=== PATIENT | male | born 1985 | race Hispanic/Latino ===

== ENCOUNTER 2017-08-21 19:37 | Inpatient (IN) | payer MEDICAID, OTHER ==
[2017-08-21 19:38] VITALS: BMI 24.6
--- NOTE | 2017-08-21 20:17 | C.PDOC ---
History Of Present Illness 31 y/o male presents to ED requesting opiates detox. Patient reports last used at 5:30 am this morning and currently denies suicidal ideation, homicidal ideation or any other physical complaints at this time. Time Seen by Provider: 08/21/17 20:02 Chief Complaint (Nursing): Substance Abuse History Per: Patient History/Exam Limitations: no limitations Onset/Duration Of Symptoms: Days Current Symptoms Are (Timing): Still Present Suicide/Self Injury Attempted (Context): None Modifying Factor(s): Narcotics Past Medical History Reviewed: Historical Data, Nursing Documentation, Vital Signs Vital Signs: Last Vital Signs Temp 97.7 F 08/21/17 19:52 Pulse 64 08/21/17 19:52 Resp 20 08/21/17 19:52 BP 131/83 08/21/17 19:52 Pulse Ox 100 08/21/17 21:25 - Medical History PMH: No Chronic Diseases Surgical History: No Surg Hx Family History: States: No Known Family Hx - Social History Hx Alcohol Use: Yes Hx Substance Use: Yes - Immunization History Hx Tetanus Toxoid Vaccination: No Hx Influenza Vaccination: No Hx Pneumococcal Vaccination: No Review Of Systems Constitutional: Negative for: Fever, Chills Cardiovascular: Negative for: Chest Pain Respiratory: Negative for: Shortness of Breath Gastrointestinal: Negative for: Nausea, Vomiting Skin: Negative for: Rash Psych: Negative for: Depression, Suicidal ideation, Withdrawal Physical Exam - Physical Exam Appears: Non-toxic, No Acute Distress Skin: Warm, Dry, No Rash Head: Atraumatic, Normacephalic Eye(s): bilateral: Normal Inspection Oral Mucosa: Moist Neck: Normal ROM, Supple Cardiovascular: Rhythm Regular Respiratory: Normal Breath Sounds, No Rales, No Rhonchi, No Wheezing Gastrointestinal/Abdominal: Soft, No Tenderness, No Guarding, No Rebound Neurological/Psych: Oriented x3, Normal Speech, Normal Cognition ED Course And Treatment - Laboratory Results Result Diagrams: 08/21/17 20:24 08/21/17 20:24 O2 Sat by Pulse Oximetry: 100 (RA) Pulse Ox Interpretation: Normal Medical Decision Making Medical Decision Makin:20- Patient is medically cleared accepte dto detox Disposition - Disposition Disposition: HOSPITALIZED Disposition Time: 21:00 Condition: STABLE Forms: [facility] (Tajik) - Clinical Impression Clinical Impression: Drug abuse - Scribe Statement The provider has reviewed the documentation as recorded by the Sudhiribrocio Hwang All medical record entries made by the Sudhiribrocio were at my direction and personally dictated by me. I have reviewed the chart and agree that the record accurately reflects my personal performance of the history, physical exam, medical decision making, and the department course for this patient. I have also personally directed, reviewed, and agree with the discharge instructions and disposition. Decision To Admit - Pt Status Changed To: Hospital Disposition Of: Inpatient - Admit Certification Admit to Inpatient:: After my assessment, the patient will require hospitalization for at least two midnights. This is because of the severity of symptoms shown, intensity of services needed, and/or the medical risk in this patient being treated as an outpatient. - InPatient: Physician Admission Certification: I certify that this patient requires 2 or more midnights of care for the following reason:: needs detox - . Bed Request Type: Detox Admitting Physician: Hay Mcdonnell Patient Diagnosis: Drug abuse
[2017-08-21 20:28] LABS: BASO % 0.6 % (0.0-2.0); EOS # 0.1 K/uL (0.0-0.7); EOS % 0.8 % (0.0-4.0); HEMOGLOBIN 13.4 g/dL (12.0-18.0); LYMPH # 2.2 K/uL (1.0-4.3); LYMPH % 27.1 % (20.0-40.0); MEAN CELL VOLUME 87.6 fL (80.0-94.0); MEAN CORPUSCULAR HEMOGLOBIN 30.6 pg (27.0-31.0); MEAN CORPUSCULAR HGB CONC 34.9 g/dL (33.0-37.0); MEAN PLATELET VOLUME 7.1 fL (7.2-11.7); MONO # 0.6 K/uL (0.0-0.8); MONO % 7.6 % (0.0-10.0); NEUT # 5.3 K/uL (1.8-7.0); NEUT % 63.9 % (50.0-75.0); NRBC % 0.1 % (0.0-2.0); RBC 4.39 Mil/uL (4.40-5.90); RED CELL DISTRIBUTION WIDTH 13.7 % (11.5-14.5); WHITE BLOOD COUNT 8.3 K/uL (4.8-10.8)
[2017-08-21 20:30] LABS: URINE BILIRUBIN NEGATIVE (NEGATIVE); URINE BLOOD NEGATIVE (NEGATIVE); URINE CLARITY Clear (Clear); URINE COLOR Yellow (YELLOW); URINE GLUCOSE (UA) NORMAL (Normal); URINE LEUKOCYTE ESTERASE NEG Leu/uL (Negative); URINE PROTEIN NEGATIVE (NEGATIVE); URINE UROBILINOGEN NORMAL mg/dL (0.2-1.0)
[2017-08-21 20:43] LABS: ALB/GLOB RATIO 1.1 (1.0-2.1); ALBUMIN 4.3 g/dL (3.5-5.0); ALT/SGPT 66 U/L (21-72); AST/SGOT 49 U/L (17-59); BLOOD UREA NITROGEN 23 mg/dL (9-20); CALCIUM 9.6 mg/dl (8.6-10.4); GFR AFRICAN-AMERICAN > 60; GFR NON-AFRICAN AMERICAN > 60
[2017-08-21 20:45] LABS: BARBITURATES, UR NEGATIVE (NEGATIVE); BENZODIAZEPINES, UR NEGATIVE (NEGATIVE); PHENCYCLIDINE, UR NEGATIVE (NEGATIVE)
[2017-08-21 20:50] LABS: OPIATES, UR POSITIVE (NEGATIVE)
--- NOTE | 2017-08-21 22:32 | PCM.BM ---
<ChayoBaljinder - Last Filed: 08/21/17 22:31> Treatment Plan Problems - Problems identified on initial assessmt potential for opiate withdrawal Date Initiated: 08/21/17 Time Initiated: 22:31 Status: Active Treatment assets and liabiliti Patient Assests: cooperative, ADL independent, cognitively intact Patient Liabilities: substance abuse - Milieu Protocol Maintain good personal hygiene: daily Encourage regular showers, daily Remind patient to perform daily oral care, daily Assist patient to perform ADL's Conduct patient checks and document Observation sheet: Q15 minutes Maintain personal safety: every shift Educate patient to report safety concerns to staff, every shift Monitor environment for contraband/sharps Medication safety: Monitor for expected outcome, potential side effects: every shift, Assess barriers to learning: every shift, Assess readiness for medication education: every shift <Cherry Huerta - Last Filed: 08/22/17 14:21> Family Contact Family involvement: Famliy/SO not involved - Goals for Treatment Patient goals for treatment: Complete detox and attend 12-step meetings. Discharge/Continuing Care - Education Needs Education Needs: Family Medication, Family Diagnosis/Disease Process, Family Coping Skills, Family Anger Management skills, Family Placement options, Family Community resources, Patient Medication, Patient Diagnosis/Disease Process, Patient Coping Skills, Patient Anger Management skills, Patient Placement options, Patient Community resources - Discharge Discharge Criteria: No longer exhibiting s/s of withdrawal, Reduction of target symptoms Discharge to:: Home - Treatment Team Participation Patient/Family/SO Statement: 08/22/17 14:21 "I've done outpatient so I'm not interested in that anymore. I'm not knocking it but I know what I need--meetings." Discussed with Family/SO: No Was Patient/Family/SO present at Treatment Team Meeting: Yes <Maynor Corona - Last Filed: 08/23/17 10:10> - Diagnosis (1) Opioid use disorder, severe, dependence Status: Acute Interventions: 08/23/17 10:10 * Assess 7x/week regarding severity of withdrawal * Educate regarding risks, benefits, side effects and alternatives of medications * Use Motivational Interviewing for abstinence * Use CBT for relapse prevention * Medication management for withdrawal symptoms * Encourage medication assisted treatment *
[2017-08-21] MEDS ORDERED: Aluminum Hydroxide/Magnesium Hydroxide Susp (30 mL) PO PRN (22:52)
--- NOTE | 2017-08-21 23:41 | CP.PCM.HP ---
Past Patient History - Past Social History Smoking Status: Heavy Smoker > 10 Cigarettes Daily - CARDIAC Hx Cardiac Disorders: No Hx Hypertension: No - PULMONARY Hx Tuberculosis: No - NEUROLOGICAL HX Cerebrovascular Accident: No Hx Seizures: No - HEMATOLOGICAL/ONCOLOGICAL Hx Cancer: No Hx Human Immunodeficiency Virus (HIV): No - GENITOURINARY/GYNECOLOGICAL Hx Sexually Transmitted Disorders: No - PSYCHIATRIC Hx Substance Use: Yes - SURGICAL HISTORY Hx Surgeries: No - ANESTHESIA Hx Anesthesia: No Meds Allergies/Adverse Reactions: Allergies Allergy/AdvReac Type Severity Reaction Status Date / Time No Known Allergies Allergy Verified 08/21/17 19:55 Physical Exam - Constitutional Appears: Well - Head Exam Head Exam: NORMAL INSPECTION - Eye Exam Eye Exam: Normal appearance - ENT Exam ENT Exam: Mucous Membranes Moist - Neck Exam Neck exam: Positive for: Normal Inspection - Respiratory Exam Respiratory Exam: Decreased Breath Sounds - Cardiovascular Exam Cardiovascular Exam: REGULAR RHYTHM, +S1, +S2 - GI/Abdominal Exam GI & Abdominal Exam: Diminished Bowel Sounds - Rectal Exam Rectal Exam: Deferred Results - Vital Signs Recent Vital Signs: Last Vital Signs Temp 97.9 F 08/21/17 22:53 Pulse 68 08/21/17 22:53 Resp 16 08/21/17 22:53 BP 125/78 08/21/17 22:53 Pulse Ox 97 08/21/17 22:53 - Labs Result Diagrams: 08/21/17 20:24 08/21/17 20:24 Labs: Laboratory Results - last 24 hr 08/21/17 08/21/17 08/21/17 20:24 20:24 20:24 WBC 8.3 RBC 4.39 L Hgb 13.4 Hct 38.4 MCV 87.6 D MCH 30.6 MCHC 34.9 RDW 13.7 Plt Count 242 MPV 7.1 L Neut % (Auto) 63.9 Lymph % (Auto) 27.1 [place] % (Auto) 7.6 Eos % (Auto) 0.8 Baso % (Auto) 0.6 Neut # (Auto) 5.3 Lymph # (Auto) 2.2 [place] # (Auto) 0.6 Eos # (Auto) 0.1 Baso # (Auto) 0.0 Sodium 146 Potassium 4.1 Chloride 103 Carbon Dioxide 30 Anion Gap 17 BUN 23 H Creatinine 0.9 Est GFR ( Amer) > 60 Est GFR (Non-Af Amer) > 60 Random Glucose 95 Calcium 9.6 Total Bilirubin 0.7 AST 49 ALT 66 Alkaline Phosphatase 63 Total Protein 8.3 Albumin 4.3 Globulin 4.0 H Albumin/Globulin Ratio 1.1 Urine Color Yellow Urine Clarity Clear Urine pH 6.0 Ur Specific [place] 1.024 Urine Protein Negative Urine Glucose (UA) Normal Urine Ketones Negative Urine Blood Negative Urine Nitrate Negative Urine Bilirubin Negative Urine Urobilinogen Normal Ur Leukocyte Esterase Neg Urine WBC (Auto) 1 Urine RBC (Auto) < 1 Urine Opiates Screen Urine Methadone Screen Ur Barbiturates Screen Ur Phencyclidine Scrn Ur Amphetamines Screen U Benzodiazepines Scrn U Oth Cocaine Metabols U Cannabinoids Screen Alcohol, Quantitative < 10 08/21/17 20:24 WBC RBC Hgb Hct MCV MCH MCHC RDW Plt Count MPV Neut % (Auto) Lymph % (Auto) [place] % (Auto) Eos % (Auto) Baso % (Auto) Neut # (Auto) Lymph # (Auto) [place] # (Auto) Eos # (Auto) Baso # (Auto) Sodium Potassium Chloride Carbon Dioxide Anion Gap BUN Creatinine Est GFR ( Amer) Est GFR (Non-Af Amer) Random Glucose Calcium Total Bilirubin AST ALT Alkaline Phosphatase Total Protein Albumin Globulin Albumin/Globulin Ratio Urine Color Urine Clarity Urine pH Ur Specific [place] Urine Protein Urine Glucose (UA) Urine Ketones Urine Blood Urine Nitrate Urine Bilirubin Urine Urobilinogen Ur Leukocyte Esterase Urine WBC (Auto) Urine RBC (Auto) Urine Opiates Screen Positive H Urine Methadone Screen Negative Ur Barbiturates Screen Negative Ur Phencyclidine Scrn Negative Ur Amphetamines Screen Negative U Benzodiazepines Scrn Negative U Oth Cocaine Metabols Positive H U Cannabinoids Screen Positive H Alcohol, Quantitative Assessment & Plan (1) Drug abuse Status: Acute
[2017-08-22 00:11] VITALS: RESP 18
--- NOTE | 2017-08-22 13:25 | CP.PCM.PN ---
Subjective - Date & Time of Evaluation Date of Evaluation: 08/22/17 Time of Evaluation: 11:40 - Subjective Subjective: clinically same Objective - Vital Signs/Intake and Output Vital Signs (last 24 hours): Temp Pulse Resp BP Pulse Ox 98.2 F 54 L 18 106/67 99 08/22/17 09:00 08/22/17 09:00 08/22/17 09:00 08/22/17 09:00 08/22/17 09:00 - Medications Medications: Current Medications Al Hydrox/Mg Hydrox/Simethicone (Maalox 30 Ml) 30 ml PO TID PRN PRN Reason: Indigestion / Heartburn Dicyclomine HCl (Bentyl) 10 mg PO Q6 PRN PRN Reason: Abdominal Cramps Gabapentin (Neurontin) 300 mg PO BID [facility] Last Admin: 08/22/17 10:39 Dose: Not Given Hydroxyzine HCl (Atarax) 25 mg PO Q6 PRN PRN Reason: Anxiety Last Admin: 08/22/17 00:24 Dose: 25 mg Ibuprofen (Motrin Tab) 400 mg PO Q6 PRN PRN Reason: Pain, moderate (4-7) Loperamide HCl (Imodium) 2 mg PO Q8 PRN PRN Reason: Diarrhea Ondansetron HCl (Zofran Tab) 4 mg PO Q8 PRN PRN Reason: Nausea/Vomiting Trazodone HCl (Desyrel) 100 mg PO [facility] - Labs Labs: 08/21/17 20:24 08/21/17 20:24 - Constitutional Appears: Well - Head Exam Head Exam: ATRAUMATIC, NORMAL INSPECTION, NORMOCEPHALIC - Eye Exam Eye Exam: EOMI, Normal appearance, PERRL Pupil Exam: NORMAL ACCOMODATION, PERRL - ENT Exam ENT Exam: Mucous Membranes Moist, Normal Exam - Neck Exam Neck Exam: Full ROM, Normal Inspection. absent: Lymphadenopathy - Respiratory Exam Respiratory Exam: Decreased Breath Sounds - Cardiovascular Exam Cardiovascular Exam: REGULAR RHYTHM, +S1, +S2 - GI/Abdominal Exam GI & Abdominal Exam: Soft, Diminished Bowel Sounds - Rectal Exam Rectal Exam: Deferred Assessment and Plan (1) Drug abuse Status: Acute
--- NOTE | 2017-08-22 14:37 | PCM.PSYCH ---
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 Patient has been using heroin for 8 years, IV, 20 bags/day. Patient has been using marijuana since age 18, 1 joint /day.Patient also uses cocaine, since age 19, 1 bag/day.The longest period of sobriety was 3 years. Patient has been to detox twice, the last time was 4 years ago. Patient has never been to rehab, and has no plan to do so in the future. PMH: denied Psych: denied Current Medications: Active Medications Generic Name Dose Route Start Last Admin Trade Name Freq PRN Reason Stop Dose Admin Al Hydrox/Mg Hydrox/Simethicone 30 ml 08/21/17 22:52 Maalox 30 Ml PO TID PRN Indigestion / Heartburn Dicyclomine HCl 10 mg 08/21/17 22:52 Bentyl PO Q6 PRN Abdominal Cramps Gabapentin 300 mg 08/21/17 23:00 08/22/17 10:39 Neurontin PO Not Given BID TAMI Hydroxyzine HCl 25 mg 08/21/17 22:55 08/22/17 00:24 Atarax PO 25 mg Q6 PRN Administration Anxiety Ibuprofen 400 mg 08/21/17 22:54 Motrin Tab PO Q6 PRN Pain, moderate (4-7) Loperamide HCl 2 mg 08/21/17 22:52 Imodium PO Q8 PRN Diarrhea Ondansetron HCl 4 mg 08/21/17 22:52 Zofran Tab PO Q8 PRN Nausea/Vomiting Trazodone HCl 100 mg 08/22/17 22:00 Desyrel PO HS TAMI Past Psychiatric History - Past Psychiatric History Previous Treatment History: None Pertinent Medical Hx (Current Medical&Sleep Prob, Allergies): Allergies Allergy/AdvReac Type Severity Reaction Status Date / Time No Known Allergies Allergy Verified 08/21/17 19:55 No Known Home Med 08/21/17 Review of Systems - Psychiatric Psychiatric: Abnormal Sleep Pattern, Anxiety, Irritability. absent: Hallucinations, Homicidal Ideation, Suicidal Ideation Mental Status Examination - Personal Presentation Personal Presentation: Looks stated age - Affect Affect: Broad - Motor Activity Motor Activity: Calm - Reliability in Providing Information Reliability in Providing Information: Good - Speech Speech: Organized - Mood Mood: Neutral - Formal Thought Process Formal Thought Process: No Impairment - Cognitive Functions Orientation: Person, Place, Situation, Time Sensorium: Alert Attention/Concentration: Attentive Abstract Thinking: [place] Judgement: Intact, as evidence by: Insight regarding need for hospitalization Memory: Recent intact, as evidence by: Ability to recall events of the day, Remote intact, as evidenced by: Abilit to recall sig. life events - Risk Risk: Diminished functioning - Strength & Assets Inventory Strength & Assets Inventory: Cooperative - Limitations Limitations: Other DSM 5 DX - DSM 5 DSM 5 Diagnosis: Opioid Use Disorder Cocaine Use Disorder Cannabis Use Disorder - Recommended/Plan of Treatment Treatment Recommendations and Plan of Treatment: Taper with Methadone Gabapentin for augmentation if needed As needed medications All risks, benefits and alternatives of the meds discussed, and the pt agreed and understood. Attend groups and activities Supportive therapy and psychoeducation MT for abstinence CBT for relapse prevention Encourage MAT Refer to rehab or IOP, and self-help groups Smoking cessation with MT Nicotine patch if needed 34 min Projected ELOS: 4-5 days - Smoking Cessation Smoking Cessation Initiated: Yes
[2017-08-22 16:24] VITALS: BP 126/74; PULSE 51; TEMP 98; O2SAT 98
--- NOTE | 2017-08-22 17:39 | PCM.PYCHDC ---
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 Patient has been using heroin for 8 years, IV, 20 bags/day. Patient has been using marijuana since age 18, 1 joint /day.Patient also uses cocaine, since age 19, 1 bag/day.The longest period of sobriety was 3 years. Patient has been to detox twice, the last time was 4 years ago. Patient has never been to rehab, and has no plan to do so in the future. PMH: denied Psych: denied Laboratory Data: Abnormal Lab Results 08/21/17 08/21/17 08/21/17 20:24 20:24 20:24 WBC 8.3 RBC 4.39 L Hgb 13.4 Hct 38.4 MCV 87.6 D MCH 30.6 MCHC 34.9 RDW 13.7 Plt Count 242 MPV 7.1 L Neut % (Auto) 63.9 Lymph % (Auto) 27.1 [place] % (Auto) 7.6 Eos % (Auto) 0.8 Baso % (Auto) 0.6 Neut # (Auto) 5.3 Lymph # (Auto) 2.2 [place] # (Auto) 0.6 Eos # (Auto) 0.1 Baso # (Auto) 0.0 Sodium 146 Potassium 4.1 Chloride 103 Carbon Dioxide 30 Anion Gap 17 BUN 23 H Creatinine 0.9 Est GFR ( Amer) > 60 Est GFR (Non-Af Amer) > 60 Random Glucose 95 Calcium 9.6 Total Bilirubin 0.7 AST 49 ALT 66 Alkaline Phosphatase 63 Total Protein 8.3 Albumin 4.3 Globulin 4.0 H Albumin/Globulin Ratio 1.1 Urine Color Yellow Urine Clarity Clear Urine pH 6.0 Ur Specific [place] 1.024 Urine Protein Negative Urine Glucose (UA) Normal Urine Ketones Negative Urine Blood Negative Urine Nitrate Negative Urine Bilirubin Negative Urine Urobilinogen Normal Ur Leukocyte Esterase Neg Urine WBC (Auto) 1 Urine RBC (Auto) < 1 Urine Opiates Screen Urine Methadone Screen Ur Barbiturates Screen Ur Phencyclidine Scrn Ur Amphetamines Screen U Benzodiazepines Scrn U Oth Cocaine Metabols U Cannabinoids Screen Alcohol, Quantitative < 10 08/21/17 20:24 WBC RBC Hgb Hct MCV MCH MCHC RDW Plt Count MPV Neut % (Auto) Lymph % (Auto) [place] % (Auto) Eos % (Auto) Baso % (Auto) Neut # (Auto) Lymph # (Auto) [place] # (Auto) Eos # (Auto) Baso # (Auto) Sodium Potassium Chloride Carbon Dioxide Anion Gap BUN Creatinine Est GFR ( Amer) Est GFR (Non-Af Amer) Random Glucose Calcium Total Bilirubin AST ALT Alkaline Phosphatase Total Protein Albumin Globulin Albumin/Globulin Ratio Urine Color Urine Clarity Urine pH Ur Specific [place] Urine Protein Urine Glucose (UA) Urine Ketones Urine Blood Urine Nitrate Urine Bilirubin Urine Urobilinogen Ur Leukocyte Esterase Urine WBC (Auto) Urine RBC (Auto) Urine Opiates Screen Positive H Urine Methadone Screen Negative Ur Barbiturates Screen Negative Ur Phencyclidine Scrn Negative Ur Amphetamines Screen Negative U Benzodiazepines Scrn Negative U Oth Cocaine Metabols Positive H U Cannabinoids Screen Positive H Alcohol, Quantitative Consultations:: List each consultation separately and include: 1. Reason for request. 2. Findings. 3. Follow-up Summary of Hospital Course include:: 1. Description of specific treatment plan utilized for patients during their course of treatmen. 2. Summarize the time- course for resolution of acute symptoms and/or regressed behaviors. 3. Describe issues identified and worked on during hospitalization. 4. Describe medication utilized. 5. Describe medical problems identified and treated. 6. Reassessment of suicide risk - Final Diagnosis (DSM 5) Condition upon Discharge: STABLE DSM 5: Opiate Use Disorder Cocaine Use Disorder THC Use Disorder Disposition: AGAINST MEDICAL ADVICE
== END 2017-08-22 18:02 | disposition left against medical advice (07) | DRG 894 ==
LOC: C.ER 19:37 → C.7D 22:09
PROVIDERS: ADMIT Internal Medicine Nephrology; ATTEND Internal Medicine Nephrology
PROC: HZ2ZZZZ Detoxification Services for Substance Abuse Treatment (ICD-10-PCS; principal; 2017-08-21)
PROC: HZ56ZZZ Individual Psychotherapy for Substance Abuse Treatment, Psychoeducation (ICD-10-PCS; 2017-08-21)
PROC: HZ59ZZZ Individual Psychotherapy for Substance Abuse Treatment, Supportive (ICD-10-PCS; 2017-08-21)
PROC: HZ46ZZZ Group Counseling for Substance Abuse Treatment, Psychoeducation (ICD-10-PCS; 2017-08-21)
DX: F11.23 Opioid dependence with withdrawal (principal); F14.10 Cocaine abuse, uncomplicated; F12.10 Cannabis abuse, uncomplicated

== ENCOUNTER 2017-11-19 22:33 | Inpatient (IN) | payer MEDICAID ==
[2017-11-19 22:33] VITALS: BMI 24.6
[2017-11-19 23:19] LABS: BASO % 0.8 % (0.0-2.0); EOS % 0.7 % (0.0-4.0); HEMOGLOBIN 12.3 g/dL (12.0-18.0); LYMPH # 1.7 K/uL (1.0-4.3); LYMPH % 31.1 % (20.0-40.0); MEAN CELL VOLUME 85.7 fL (80.0-94.0); MEAN CORPUSCULAR HEMOGLOBIN 29.7 pg (27.0-31.0); MEAN CORPUSCULAR HGB CONC 34.7 g/dL (33.0-37.0); MONO # 0.6 K/uL (0.0-0.8); NEUT % 56.4 % (50.0-75.0); RBC 4.14 Mil/uL (4.40-5.90); RED CELL DISTRIBUTION WIDTH 13.9 % (11.5-14.5); WHITE BLOOD COUNT 5.4 K/uL (4.8-10.8)
[2017-11-19 23:24] LABS: URINE BILIRUBIN NEGATIVE (NEGATIVE); URINE BLOOD NEGATIVE (NEGATIVE); URINE CLARITY Clear (Clear); URINE COLOR Yellow (YELLOW); URINE GLUCOSE (UA) NORMAL (Normal); URINE LEUKOCYTE ESTERASE NEG Leu/uL (Negative); URINE PROTEIN 1+ mg/dL (NEGATIVE)
[2017-11-19 23:31] LABS: ALB/GLOB RATIO 1.2 (1.0-2.1); ALBUMIN 3.9 g/dL (3.5-5.0); ALT/SGPT 57 U/L (21-72); AST/SGOT 40 U/L (17-59); BLOOD UREA NITROGEN 22 mg/dL (9-20); CALCIUM 8.9 mg/dl (8.6-10.4); GFR AFRICAN-AMERICAN > 60; GFR NON-AFRICAN AMERICAN > 60
[2017-11-19 23:36] LABS: BARBITURATES, UR NEGATIVE (NEGATIVE); BENZODIAZEPINES, UR NEGATIVE (NEGATIVE); PHENCYCLIDINE, UR NEGATIVE (NEGATIVE)
[2017-11-19 23:37] LABS: OPIATES, UR POSITIVE (NEGATIVE)
--- NOTE | 2017-11-19 23:50 | C.PDOC ---
History Of Present Illness Patient present to ED requesting detox from heroin use. Patient uses daily and last use was 4 hours ago. Denies any SI, HI, withdrawal symptoms or other associated complaints. Time Seen by Provider: 11/19/17 22:52 Chief Complaint (Nursing): Substance Abuse History Per: Patient History/Exam Limitations: no limitations Onset/Duration Of Symptoms: Days Current Symptoms Are (Timing): Still Present Suicide/Self Injury Attempted (Context): None Modifying Factor(s): Other (Heroin) Associated Symptoms: denies: Other (Withdrawal) Involuntary Hold By: None Recent travel outside of the [place]: No Past Medical History Reviewed: Historical Data, Nursing Documentation, Vital Signs Vital Signs: Last Vital Signs Temp 98 F 11/20/17 00:50 Pulse 60 11/20/17 00:50 Resp 18 11/20/17 00:50 BP 110/65 11/20/17 00:50 Pulse Ox 100 11/20/17 00:50 - Medical History PMH: Denies: Diabetes, Hepatitis, HIV, HTN, Chronic Kidney Disease, Seizures, Sexually Transmitted Disease - [facility] Procedures DETOXIFICATION SERVICES FOR SUBSTANCE ABUSE TREATMENT (08/21/17) GROUP [employer] W[employer]ER TENDER FOR SUBSTANCE ABUSE TREATMENT, PSYCHOEDUCATION (08/21/17) INDIV PSYCHOTHERAPY FOR SUBSTANCE ABUSE TREATMENT, SUPPORT (08/21/17) INDIV PSYCHOTHERAPY FOR SUBSTANCE ABUSE, PSYCHOEDUCATION (08/21/17) Family History: States: Unknown Family Hx - Social History Hx Alcohol Use: Yes Hx Substance Use: Yes - Immunization History Hx Tetanus Toxoid Vaccination: No Hx Influenza Vaccination: No Hx Pneumococcal Vaccination: No Review Of Systems Constitutional: Negative for: Fever, Chills Cardiovascular: Negative for: Chest Pain, Palpitations Respiratory: Negative for: Cough, Shortness of Breath Gastrointestinal: Negative for: Nausea, Vomiting Psych: Negative for: Depression, Suicidal ideation, Withdrawal Physical Exam - Physical Exam Appears: Non-toxic, No Acute Distress Skin: Normal Color, Warm, Dry Head: Atraumatic, Normacephalic Eye(s): bilateral: Normal Inspection Oral Mucosa: Moist Chest: Symmetrical, No Tenderness Cardiovascular: Rhythm Regular Respiratory: Normal Breath Sounds, No Rales, No Rhonchi, No Wheezing Gastrointestinal/Abdominal: Soft, No Tenderness Neurological/Psych: Oriented x3, Normal Speech Gait: Steady ED Course And Treatment - Laboratory Results Result Diagrams: 11/19/17 23:15 11/19/17 23:15 O2 Sat by Pulse Oximetry: 98 Medical Decision Making Medical Decision Making: Impression: drug abuse, requests detox Plan: Labs for medical clearance Progress: Labs ordered and reviewed. In my clinical judgment patient is medically cleared and stable for psychiatric admission. quarry worker contacted for evaluation. [id number] PES at bedside for evaluation 0010 As per CW patient is to be admitted under Dr Corona service for detox Disposition Counseled Patient/Family Regarding: Diagnosis, Need For Followup - Disposition Disposition: HOSPITALIZED Disposition Time: 00:10 Condition: STABLE - POA Present On Arrival: None - Clinical Impression Clinical Impression: Opioid use disorder, severe, dependence, Drug abuse - PA / NATURAL RESOURCES MANAGER / Resident Statement MD/DO has reviewed & agrees with the documentation as recorded. - Scribe Statement The provider has reviewed the documentation as recorded by the Scribrocio Valenzuela All medical record entries made by the Scribe were at my direction and personally dictated by me. I have reviewed the chart and agree that the record accurately reflects my personal performance of the history, physical exam, medical decision making, and the department course for this patient. I have also personally directed, reviewed, and agree with the discharge instructions and disposition. Decision To Admit - Pt Status Changed To: Hospital Disposition Of: Inpatient - Admit Certification Admit to Inpatient:: After my assessment, the patient will require hospitalization for at least two midnights. This is because of the severity of symptoms shown, intensity of services needed, and/or the medical risk in this patient being treated as an outpatient. - InPatient: Physician Admission Certification: I certify that this patient requires 2 or more midnights of care for the following reason:: patient will benefit from inpatient detox - . Bed Request Type: Detox Admitting Physician: Maynor Corona Patient Diagnosis: Opioid use disorder, severe, dependence, Drug abuse
[2017-11-20 00:51] VITALS: RESP 18
--- NOTE | 2017-11-20 17:53 | PCM.PSYCH ---
Initial Psychiatric Evaluation - Initial Psychiatric Evaluation Type of Admission: Voluntary Legal Status: Capacity Chief Complaint (in patient's own words): "heroin" History of Present Illness and Precipitating Events: Pt is seen, chart reviewed, case discussed with staff. Pt is a 32 y/o male who is single with no children and living in an apartment in [place] with a friend; pt works in construction. Pt has a hx of opioid use for the past 8 years and has been using 20-30 bags of heroin/day IV. Pt has been using marijuana since 18 y/o and smokes 1 joint/day. Pt has a hx of cocaine use since 19 y/o and uses 1 bag/day. Pt has been to detox 3 times, the last time at [facility] in August of 2017; pt AMAd the same day he arrived; pt has been to 3 different long-term rehabs and has no plans on going back. Feels down and depressed, anhedonic, but not suicidal. Pt describes and displays significant withdrawal symptoms; pt also displays multiple scars on his legs and says that they are from picking due to the cocaine use. high risk of OD and relapse, has poor insight into risks, low motivation and poor support system. All discussed. Past medical hx denied. Past psychiatric hx denied. Family hx denied. Current Medications: Active Medications Generic Name Dose Route Start Last Admin Trade Name Freq PRN Reason Stop Dose Admin Clonidine HCl 0.1 mg 11/20/17 01:18 Catapres PO Q6 PRN opiate withdrawal Hydroxyzine HCl 25 mg 11/20/17 01:19 Atarax PO Q6 PRN Anxiety Loperamide HCl 2 mg 11/20/17 11:51 Imodium PO Q8 PRN Diarrhea Methadone HCl 15 mg 11/21/17 10:00 Methadone PO 11/24/17 09:59 Q24H TAMI Taper Mirtazapine 15 mg 11/20/17 22:00 Remeron PO HS TAMI Ondansetron HCl 4 mg 11/20/17 11:51 Zofran Tab PO Q8 PRN Nausea/Vomiting Trazodone HCl 50 mg 11/20/17 01:18 Desyrel PO HS PRN Insomnia Past Psychiatric History - Past Psychiatric History Previous Treatment History: None Pertinent Medical Hx (Current Medical&Sleep Prob, Allergies): Allergies Allergy/AdvReac Type Severity Reaction Status Date / Time No Known Allergies Allergy Verified 11/19/17 22:42 No Known Home Med 08/21/17 Review of Systems - Neurological Neurological: UNREMARKABLE - Psychiatric Psychiatric: Abnormal Sleep Pattern, Anhedonia, Anxiety, Difficulty Concentrating, Irritability. absent: Homicidal Ideation, Paranoia, Suicidal Ideation Mental Status Examination - Personal Presentation Personal Presentation: Looks older than stated age - Affect Affect: Blunted - Motor Activity Motor Activity: Calm - Reliability in Providing Information Reliability in Providing Information: Fair - Speech Speech: Organized - Mood Mood: Anxious - Formal Thought Process Formal Thought Process: No Impairment - Cognitive Functions Orientation: Person, Place, Situation, Time Sensorium: Alert Attention/Concentration: Attentive Estimate of Intelligence: Average Judgement: Intact, as evidence by: Insight regarding need for hospitalization Memory: Recent intact, as evidence by: Ability to recall events of the day, Remote intact, as evidenced by: Abilit to recall sig. life events - Risk Risk: Withdrawal, Diminished functioning - Strength & Assets Inventory Strength & Assets Inventory: Cooperative - Limitations Limitations: Other DSM 5 DX - DSM 5 DSM 5 Diagnosis: Opioid Withdrawal, severe Opioid Use Disorder, severe Cocaine Use Disorder, severe Substance-induced depressive d/o Depressive d/o - unspecified - Recommended/Plan of Treatment Treatment Recommendations and Plan of Treatment: Taper with methadone remeron for depression and insomnia Gabapentin for augmentation if needed As needed medications All risks, benefits and alternatives of the meds discussed, and the pt agreed and understood. Attend groups and activities Supportive therapy and psychoeducation [place] for abstinence CBT for relapse prevention Encourage MAT Refer to rehab or IOP, and self-help groups Smoking cessation with [place] Nicotine patch if needed 33 min Projected ELOS: 4 days Prognosis: good w rehab or MAT - Smoking Cessation Smoking Cessation Initiated: Yes
[2017-11-20 18:58] VITALS: O2SAT 100
[2017-11-21 02:01] VITALS: PULSE 62; TEMP 97.6
[2017-11-21 09:51] VITALS: BP 124/94
--- NOTE | 2017-11-21 09:57 | PCM.PYCHDC ---
Mental Status Examination - Mental Status Examination Orientation: Person Discharge Summary - Discharge Note Reason for Hospitalization: Opioid detox Consultations:: List each consultation separately and include: 1. Reason for request. 2. Findings. 3. Follow-up Summary of Hospital Course include:: 1. Description of specific treatment plan utilized for patients during their course of treatmen. 2. Summarize the time- course for resolution of acute symptoms and/or regressed behaviors. 3. Describe issues identified and worked on during hospitalization. 4. Describe medication utilized. 5. Describe medical problems identified and treated. 6. Reassessment of suicide risk Summary of Hospital Course: Pt is seen, chart reviewed, case discussed with staff. On admission: Pt is a 32 y/o male who is single with no children and living in an apartment in [place] with a friend; pt works in construction. Pt has a hx of opioid use for the past 8 years and has been using 20-30 bags of heroin/day IV. Pt has been using marijuana since 18 y/o and smokes 1 joint/day. Pt has a hx of cocaine use since 19 y/o and uses 1 bag/day. Pt has been to detox 3 times, the last time at [facility] in August of 2017; pt AMAd the same day he arrived; pt has been to 3 different long-term rehabs and has no plans on going back. Feels down and depressed, anhedonic, but not suicidal. Pt describes and displays significant withdrawal symptoms; pt also displays multiple scars on his legs and says that they are from picking due to the cocaine use. high risk of OD and relapse, has poor insight into risks, low motivation and poor support system. All discussed. Past medical hx denied. Past psychiatric hx denied. Family hx denied. He, again, demanded to leave AMA. He was rigid, irate and uncooperative. He wouldn't even consider alternatives or additional help. He was first against MAT , but then he agreed . He claimed our methadone was not working even though he seemed to be improving. - Final Diagnosis (DSM 5) Condition upon Discharge: STABLE Disposition: AGAINST MEDICAL ADVICE Follow-up Treatment Plan: Taper with methadone remeron for depression and insomnia Gabapentin for augmentation if needed As needed medications All risks, benefits and alternatives of the meds discussed, and the pt agreed and understood. Attend groups and activities Supportive therapy and psychoeducation [place] for abstinence CBT for relapse prevention Encourage MAT Refer to rehab or IOP, and self-help groups Smoking cessation with [place] Nicotine patch if needed 33 min
== END 2017-11-21 10:30 | disposition left against medical advice (07) | DRG 743 ==
LOC: C.ER 22:33 → C.7D 11-20 00:09
PROVIDERS: ADMIT Psychiatry & Neurology Psychiatry; ATTEND Psychiatry & Neurology Psychiatry
PROC: HZ2ZZZZ Detoxification Services for Substance Abuse Treatment (ICD-10-PCS; principal; 2017-11-20)
PROC: HZ59ZZZ Individual Psychotherapy for Substance Abuse Treatment, Supportive (ICD-10-PCS; 2017-11-20)
PROC: HZ46ZZZ Group Counseling for Substance Abuse Treatment, Psychoeducation (ICD-10-PCS; 2017-11-20)
PROC: GZ3ZZZZ Medication Management (ICD-10-PCS; 2017-11-20)
DX: F11.23 Opioid dependence with withdrawal (principal); F14.20 Cocaine dependence, uncomplicated; F19.94 Other psychoactive substance use, unspecified with psychoactive substance-induced mood disorder; F32.9 Major depressive disorder, single episode, unspecified; F12.90 Cannabis use, unspecified, uncomplicated; F17.210 Nicotine dependence, cigarettes, uncomplicated

== ENCOUNTER 2018-01-01 14:55 | Inpatient (IN) | payer MEDICAID ==
[2018-01-01 14:56] VITALS: BMI 24.6
--- NOTE | 2018-01-01 15:40 | C.PDOC ---
History Of Present Illness 32 y/o male presents to ED requesting detox from IV Heroin last used this morning. Denies medical problems. Patient denies history of withdrawal seizures, SI/HI or any other complaints at this time. Time Seen by Provider: 01/01/18 15:14 Chief Complaint (Nursing): Psychiatric Evaluation History Per: Patient History/Exam Limitations: no limitations Onset/Duration Of Symptoms: Days Current Symptoms Are (Timing): Still Present Past Medical History Reviewed: Historical Data, Nursing Documentation, Vital Signs Vital Signs: Last Vital Signs Temp 97.6 F 01/02/18 06:00 Pulse 73 01/02/18 15:17 Resp 20 01/02/18 06:00 BP 122/87 01/02/18 15:17 Pulse Ox 99 01/02/18 06:00 - Medical History PMH: No Chronic Diseases Surgical History: No Surg Hx - [facility] Procedures DETOXIFICATION SERVICES FOR SUBSTANCE ABUSE TREATMENT (11/20/17) GROUP RELIGION DEPARTMENT CHAIR FOR SUBSTANCE ABUSE TREATMENT, PSYCHOEDUCATION (11/20/17) INDIV PSYCHOTHERAPY FOR SUBSTANCE ABUSE TREATMENT, SUPPORT (11/20/17) INDIV PSYCHOTHERAPY FOR SUBSTANCE ABUSE, PSYCHOEDUCATION (08/21/17) MEDICATION MANAGEMENT (11/20/17) Family History: States: No Known Family Hx - Social History Hx Alcohol Use: No Hx Substance Use: Yes (last use 0700 today) - Immunization History Hx Tetanus Toxoid Vaccination: Yes Hx Influenza Vaccination: No Hx Pneumococcal Vaccination: No Review Of Systems Except As Marked, All Systems Reviewed And Found Negative. Constitutional: Negative for: Fever, Chills Cardiovascular: Negative for: Chest Pain Respiratory: Negative for: Shortness of Breath Gastrointestinal: Negative for: Nausea, Vomiting Skin: Negative for: Rash Psych: Positive for: Other (substance abuse). Negative for: Withdrawal Physical Exam - Physical Exam Appears: Non-toxic, No Acute Distress Skin: Warm, Dry, No Rash Head: Atraumatic, Normacephalic Eye(s): bilateral: Normal Inspection, EOMI Nose: Normal Oral Mucosa: Moist Neck: Normal ROM, Supple Chest: Symmetrical Cardiovascular: Rhythm Regular Respiratory: Normal Breath Sounds, No Rales, No Rhonchi, No Wheezing Gastrointestinal/Abdominal: Soft, No Tenderness, No Guarding, No Rebound Neurological/Psych: Oriented x3, Normal Speech, Normal Cognition ED Course And Treatment - Laboratory Results Result Diagrams: 01/01/18 16:46 01/01/18 16:46 O2 Sat by Pulse Oximetry: 100 (RA) Pulse Ox Interpretation: Normal Progress Note: Blood work, Drug screen, UA,. Pt was seen and evaluated by social secretary and admitted to Dr. Noble for opiod dependence and MDD. Disposition - Disposition Disposition: HOSPITALIZED Disposition Time: 16:00 Condition: STABLE - Clinical Impression Clinical Impression: Major depression, Opioid use disorder, severe, dependence - PA / SCREEN DOOR MAKER / Resident Statement MD/DO has reviewed & agrees with the documentation as recorded. - Scribe Statement The provider has reviewed the documentation as recorded by the Sudhiribrocio Hwang All medical record entries made by the Porfirio were at my direction and personally dictated by me. I have reviewed the chart and agree that the record accurately reflects my personal performance of the history, physical exam, medical decision making, and the department course for this patient. I have also personally directed, reviewed, and agree with the discharge instructions and d isposition.
[2018-01-01 16:49] LABS: BASO % 0.6 % (0.0-2.0); EOS # 0.1 K/uL (0.0-0.7); EOS % 1.8 % (0.0-4.0); HEMOGLOBIN 12.7 g/dL (12.0-18.0); LYMPH # 1.3 K/uL (1.0-4.3); MEAN CELL VOLUME 89.2 fL (80.0-94.0); MEAN CORPUSCULAR HEMOGLOBIN 30.8 pg (27.0-31.0); MEAN CORPUSCULAR HGB CONC 34.5 g/dL (33.0-37.0); MONO # 0.4 K/uL (0.0-0.8); MONO % 7.7 % (0.0-10.0); NEUT # 3.9 K/uL (1.8-7.0); NEUT % 66.9 % (50.0-75.0); NRBC % 0.2 % (0.0-2.0); RBC 4.11 Mil/uL (4.40-5.90); RED CELL DISTRIBUTION WIDTH 14.8 % (11.5-14.5); WHITE BLOOD COUNT 5.8 K/uL (4.8-10.8)
[2018-01-01 16:56] LABS: SQUAMOUS EPITHIAL < 1 /hpf (0-5); URINE BACTERIA RARE (<OCC); URINE BILIRUBIN NEGATIVE (NEGATIVE); URINE BLOOD NEGATIVE (NEGATIVE); URINE CLARITY Clear (Clear); URINE COLOR Yellow (YELLOW); URINE GLUCOSE (UA) NORMAL (Normal); URINE LEUKOCYTE ESTERASE NEG Leu/uL (Negative); URINE PROTEIN NEGATIVE (NEGATIVE)
[2018-01-01 17:05] LABS: ALB/GLOB RATIO 1.1 (1.0-2.1); ALBUMIN 3.7 g/dL (3.5-5.0); ALT/SGPT 49 U/L (21-72); AST/SGOT 30 U/L (17-59); BLOOD UREA NITROGEN 20 mg/dL (9-20); GFR NON-AFRICAN AMERICAN > 60
[2018-01-01 17:15] LABS: BARBITURATES, UR NEGATIVE (NEGATIVE); BENZODIAZEPINES, UR NEGATIVE (NEGATIVE); OPIATES, UR POSITIVE (NEGATIVE); PHENCYCLIDINE, UR NEGATIVE (NEGATIVE)
[2018-01-01] MEDS ORDERED: Aluminum Hydroxide/Magnesium Hydroxide Susp (30 mL) PO PRN (19:39)
--- NOTE | 2018-01-01 21:22 | PCM.BM ---
<Damian Dominguez - Last Filed: 01/01/18 21:20> Treatment Plan Problems - Problems identified on initial assessmt Substance Abuse Date Initiated: 01/01/18 Time Initiated: 21:20 Status: Active Depression Date Initiated: 01/01/18 Time Initiated: 21:21 Status: Active Treatment assets and liabiliti Patient Assests: cooperative, ADL independent, cognitively intact Patient Liabilities: live alone (Homeless), substance abuse (Heroin, Cocaine), medical problems - Milieu Protocol Maintain good personal hygiene: daily Encourage regular showers, daily Remind patient to perform daily oral care, every shift Assist patient to perform ADL's Conduct patient checks and document Observation sheet: Q15 minutes (For safety) Maintain personal safety: every shift Educate patient to report safety concerns to staff, every shift Monitor environment for contraband/sharps Medication safety: Monitor for expected outcome, potential side effects: every shift, Assess barriers to learning: every shift, Assess readiness for medication education: every shift <Maynor Corona - Last Filed: 01/02/18 13:44> - Diagnosis (1) Major depression Status: Acute Interventions: 01/02/18 13:44 * Assess/adjust medications daily and /or as needed * See patient on an individual basis 7x/week to assess symptoms of depression * Monitor for side effects & effectiveness of medications * (2) Opioid use disorder, severe, dependence Status: Acute Interventions: 01/02/18 13:44 * Assess 7x/week regarding severity of withdrawal * Educate regarding risks, benefits, side effects and alternatives of medications * Use Motivational Interviewing for abstinence * Use CBT for relapse prevention * Medication management for withdrawal symptoms * Encourage medication assisted treatment * <Ariadna Ferrell - Last Filed: 01/02/18 14:15> Family Contact Family involvement: Famliy/SO not involved - Goals for Treatment Patient goals for treatment: "I want to go to [facility] for rehab." Discharge/Continuing Care - Education Needs Education Needs: Patient Medication, Patient Coping Skills, Patient Community resources, Patient Activities of Daily Living - Discharge Discharge Criteria: Tolerates medication w/o severe side effects, No longer exhibiting s/s of withdrawal, Reduction of target symptoms Discharge to:: Substance Abuse Rehab - Treatment Team Participation Discussed with Family/SO: No Was Patient/Family/SO present at Treatment Team Meeting: Yes
[2018-01-02 06:51] VITALS: RESP 20
--- NOTE | 2018-01-02 13:44 | PCM.PSYCH ---
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 Patient is here for severe depression and heroin detox. He has been using 20 ba gs of heroin and 10 dollars worth of crack cocaine every day for the last 8 years. He also smokes marijuana and cigarette 1 ppd. He denies alcohol or any other drug use. He states that he is withdrawing already. He denies feeling suicidal or homicidal now or visual or auditory hallucinations, paranoia. He says he is still depressed and was suicidal on admission. Patient reports that he tried detox 4 times in the past. Last detox was in November,. He states that he was planning to go to a methadone clinic after leaving AMA from the detox in last November but he did not and he relapsed. He has gone to rehab 2 times in the past. The last rehabilitation was 2 years ago. He denies any past psychiatric hospitalizations. Psych hx: Depression, on and off Medical hx: denies. Family hx: He states his mother has some alcohol problem but he denies that she is an alcoholic. Current Medications: Active Medications Generic Name Dose Route Start Last Admin Trade Name Freq PRN Reason Stop Dose Admin Al Hydrox/Mg Hydrox/Simethicone 30 ml 01/01/18 19:39 Maalox 30 Ml PO TID PRN Indigestion / Heartburn Clonidine HCl 0.1 mg 01/01/18 19:39 Catapres PO Q8 PRN COWS Score More or Equal to 5 Hydroxyzine HCl 25 mg 01/01/18 19:40 01/01/18 22:05 Atarax PO 25 mg Q6 PRN Administration Agitation Loperamide HCl 2 mg 01/01/18 19:39 Imodium PO Q8 PRN Diarrhea Methadone HCl 10 mg 01/03/18 10:00 Methadone PO 01/05/18 09:59 Q24H TAMI Taper Mirtazapine 30 mg 01/02/18 22:00 Remeron PO HS TAMI Ondansetron HCl 4 mg 01/01/18 19:39 Zofran Tab PO Q8 PRN Nausea/Vomiting Pneumococcal Polyvalent Vaccine 0.5 ml 01/03/18 10:00 Pneumovax 23 Vaccine IM 01/03/18 10:01 .ONCE ONE Trazodone HCl 50 mg 01/01/18 22:00 01/01/18 22:05 Desyrel PO 50 mg HS TAMI Administration Past Psychiatric History - Past Psychiatric History Previous Treatment History: None Pertinent Medical Hx (Current Medical&Sleep Prob, Allergies): Allergies Allergy/AdvReac Type Severity Reaction Status Date / Time No Known Allergies Allergy Verified 11/19/17 22:42 No Known Home Med 08/21/17 Review of Systems - Neurological Neurological: UNREMARKABLE - Psychiatric Psychiatric: Abnormal Sleep Pattern, Anhedonia, Anxiety, Depression, Difficulty Concentrating. absent: Hallucinations, Homicidal Ideation, Paranoia, Suicidal Ideation Mental Status Examination - Personal Presentation Personal Presentation: Looks stated age - Affect Affect: Constricted - Motor Activity Motor Activity: Calm - Reliability in Providing Information Reliability in Providing Information: Fair - Speech Speech: Organized - Formal Thought Process Formal Thought Process: No Impairment - Cognitive Functions Orientation: Person, Place, Situation, Time Sensorium: Alert Attention/Concentration: Easily distracted Abstract Thinking: [place] Estimate of Intelligence: Average Judgement: Intact, as evidence by: Insight regarding need for hospitalization Memory: Recent intact, as evidence by: Ability to recall events of the day, Remote intact, as evidenced by: Abilit to recall sig. life events - Risk Risk: Withdrawal, Diminished functioning - Strength & Assets Inventory Strength & Assets Inventory: Cooperative - Limitations Limitations: Living alone DSM 5 DX - DSM 5 DSM 5 Diagnosis: Major depressive d/o - single, severe Opioid withdrawal Opioid use d/o -severe Cocaine use d/o - severe - Recommended/Plan of Treatment Treatment Recommendations and Plan of Treatment: Remeron for depression Taper with methadone As needed medications All risks, benefits and alternatives of the meds discussed, and the patient agreed and understood. Attend groups and activities Supportive therapy and psychoeducation [place] for abstinence CBT for relapse prevention Encourage MAT Refer to rehab or IOP, and self-help groups Teach healthy lifestyle methods, i.e. diet, exercise, meditation 34 min Projected ELOS: 4 days Prognosis: good - Smoking Cessation Smoking Cessation Initiated: Yes
[2018-01-02 20:19] VITALS: O2SAT 100
[2018-01-03] MEDS ORDERED: Pneumococcal 23-Valent Vaccine IM ONE (10:00)
--- NOTE | 2018-01-03 11:56 | PCM.PYCHPN ---
Psychiatric Progress Note - Psychiatric Progress Note Patient Chief Complaint: "I feel better" Problems Identified/Issues Discussed: The pt is seen, chart reviewed, case discussed with staff. The pt is compliant with medications and reports no side-effects. Symptoms are improving and patient states feeling better. Pt attends groups and activities. Support given, psycho-education provided. After care discussed. Patient is acknowledged about possible d/c tomorrow. Medication Change: Yes Medical Record Reviewed: Yes Mental Status Examination - Cognitive Function Orientation: Person, Place, Situation, Time - Affect Affect: Constricted - Formal Thought Process Formal Thought Process: No Impairment - Homicidal Ideation Homicidal Ideation: No Goal/Treatment Plan - Goal/Treatment Plan Progress Toward Problem(s) and Goals/Treatment Plan: Remeron for depression Taper with methadone As needed medications All risks, benefits and alternatives of the meds discussed, and the patient agreed and understood. Attend groups and activities Supportive therapy and psychoeducation [place] for abstinence CBT for relapse prevention Encourage MAT Refer to rehab or IOP, and self-help groups Teach healthy lifestyle methods, i.e. diet, exercise, meditation 34 min
[2018-01-03] MEDS ORDERED: Vitamins A & D Oint UD Foilpak EXT PRN (16:35)
[2018-01-04 06:31] VITALS: BP 115/82; PULSE 50; TEMP 98.2
--- NOTE | 2018-01-04 09:36 | PCM.PYCHDC ---
Mental Status Examination - Mental Status Examination Orientation: Person Discharge Summary - Discharge Note Consultations:: List each consultation separately and include: 1. Reason for request. 2. Findings. 3. Follow-up Summary of Hospital Course include:: 1. Description of specific treatment plan utilized for patients during their course of treatmen. 2. Summarize the time- course for resolution of acute symptoms and/or regressed behaviors. 3. Describe issues identified and worked on during hospitalization. 4. Describe medication utilized. 5. Describe medical problems identified and treated. 6. 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 Patient is here for severe depression and heroin detox. He has been using 20 bags of heroin and 10 dollars worth of crack cocaine every day for the last 8 years. He also smokes marijuana and cigarette 1 ppd. He denies alcohol or any other drug use. He states that he is withdrawing already. He denies feeling suicidal or homicidal now or visual or auditory hallucinations, paranoia. He says he is still depressed and was suicidal on admission. Patient reports that he tried detox 4 times in the past. Last detox was in November,. He states that he was planning to go to a methadone clinic after leaving [facility] from the detox in last November but he did not and he relapsed. He has gone to rehab 2 times in the past. The last rehabilitation was 2 years ago. He denies any past psychiatric hospitalizations. Psych hx: Depression, on and off Medical hx: denies. Family hx: He states his mother has some alcohol problem but he denies that she is an alcoholic. Pt attempted to leave [facility] again but stayed this time. He is now going to [facility]. - Diagnosis (1) Major depression Current Visit: Yes Status: Acute (2) Opioid use disorder, severe, dependence Current Visit: Yes Status: Acute - Final Diagnosis (DSM 5) Condition upon Discharge: STABLE Disposition: HOME/ ROUTINE Follow-up Treatment Plan: Remeron for depression Taper with methadone As needed medications All risks, benefits and alternatives of the meds discussed, and the patient agreed and understood. Attend groups and activities Supportive therapy and psychoeducation [place] for abstinence CBT for relapse prevention Encourage MAT Refer to rehab or IOP, and self-help groups Teach healthy lifestyle methods, i.e. diet, exercise, meditation 34 min
== END 2018-01-04 09:58 | disposition home or self-care (01) | DRG 745 ==
LOC: C.ER 14:55 → C.5E 18:01
PROVIDERS: ADMIT Psychiatry & Neurology Psychiatry; ATTEND Psychiatry & Neurology Psychiatry
PROC: HZ2ZZZZ Detoxification Services for Substance Abuse Treatment (ICD-10-PCS; principal; 2018-01-01)
DX: F11.23 Opioid dependence with withdrawal (principal); F32.9 Major depressive disorder, single episode, unspecified